=== PATIENT | male | born 2000 | race African-American/Black ===

== ENCOUNTER 2020-09-01 16:02 | Emergency (ER) | payer OTHER ==
[2020-09-01 16:09] VITALS: BP 136/87
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
== END 2020-09-01 16:31 | disposition home or self-care (01) ==
LOC: ER 16:02
DX: R51.9 Headache, unspecified (principal); V89.2XXA Person injured in unspecified motor-vehicle accident, traffic, initial encounter
CPT/HCPCS: 99283